=== PATIENT | male | born 1950 | race African-American/Black ===

== ENCOUNTER 2018-01-29 08:10 | Outpatient (CLI) | payer MEDICARE ==
--- NOTE | 2018-01-29 14:07 | CT ---
CT ABDOMEN AND PELVIS PERFORMED WITH INTRAVENOUS CONTRAST ENHANCEMENT: HISTORY: Abdominal pain, which is diffuse for the past few months, with some constipation. COMPARISON: 01/03/2014 FINDINGS: ABDOMEN: The lung bases are clear of any infiltrative process. The liver, spleen, pancreas, and gallbladder regions all appear unremarkable. The right and left adrenal glands are normal. Hypodensities involving the right kidney appear stable and are too small to characterized but most likely all represent cysts. There is no significant per iaortic or mesenteric lymphadenopathy. There is a mild amount of stool present within the left colon . PELVIS: Very minimal sigmoid diverticulosis is noted. The appendix is unremarkable. There is no si gnificant pelvic lymphadenopathy or mass. The prostate is mildly prominent. Review of osseous structures shows some very mild arthritic changes of the spine. IMPRESSION: 1. No acute findings of the abdomen or pelvis. 2. Very minimal sigmoid diverticulosis. 3. Small cortical cysts involving the kidneys. POS: [facility]
== END 2018-01-29 08:11 | disposition home or self-care (01) ==
LOC: SCSCT 08:10
PROVIDERS: ATTEND Internal Medicine Gastroenterology
DX: R10.30 Lower abdominal pain, unspecified (principal); N28.1 Cyst of kidney, acquired; K57.30 Diverticulosis of large intestine without perforation or abscess without bleeding
CPT/HCPCS: 74177; 82565

== ENCOUNTER 2019-09-09 13:46 | Outpatient (CLI) | payer MEDICARE ==
--- NOTE | 2019-09-13 21:25 | CCLSPC ---
Lower extremity arterial evaluation with multiple cardiovascular risk factors with numbness in his feet. Examination of the right leg reveals normal Doppler waveforms at all levels with an ankle-arm index of 1.3. The toe-brachial index is normal. This suggested normal exam in the right leg. Left lower extremity demonstrates similar findings with normal waveforms, ankle-arm index 1.22 and normal toe-brachial index. This is suggestive of a normal exam in the left lower extremity. Paresthesias consistent with nonvascular etiology. Job ID: [id number]
== END 2019-09-09 13:47 | disposition home or self-care (01) ==
LOC: ULT 13:46
PROVIDERS: ATTEND Family Medicine
DX: M79.604 Pain in right leg (principal); M79.605 Pain in left leg
CPT/HCPCS: 93922

== ENCOUNTER 2021-06-07 09:16 | Outpatient (CLI) | payer OTHER | END 2021-06-07 09:17 | disposition home or self-care (01) | LOC: BICMAMMO 09:16 | PROVIDERS: ATTEND Internal Medicine | DX: N64.59 Other signs and symptoms in breast (principal); D49.3 Neoplasm of unspecified behavior of breast; N62 Hypertrophy of breast | CPT/HCPCS: 77066; G0279 ==

== ENCOUNTER 2022-03-11 12:43 | Outpatient (CLI) | payer OTHER | END 2022-03-11 12:44 | disposition home or self-care (01) | LOC: ULT 12:43 | PROVIDERS: ATTEND Internal Medicine Nephrology | DX: N17.9 Acute kidney failure, unspecified (principal); N18.30 Chronic kidney disease, stage 3 unspecified; N40.1 Benign prostatic hyperplasia with lower urinary tract symptoms | CPT/HCPCS: 76770 ==